=== PATIENT | male | born 1995 | race Hispanic/Latino ===

== ENCOUNTER 2021-02-03 18:00 | Emergency (ER) | payer OTHER ==
[~2021-02-03] VITALS: Ht 180.3 cm; Wt 104.8 kg
[2021-02-03] MEDS ORDERED: ONDA4TAB6 PO (21:32)
[2021-02-03 21:48] VITALS: BP 131/72
== END 2021-02-03 21:49 | disposition home or self-care (01) ==
LOC: M ED 18:00
DX: K52.9 Noninfective gastroenteritis and colitis, unspecified (principal); R19.7 Diarrhea, unspecified; R42 Dizziness and giddiness; R61 Generalized hyperhidrosis; R68.83 Chills (without fever); R63.8 Other symptoms and signs concerning food and fluid intake; R06.02 Shortness of breath; R51.9 Headache, unspecified

== ENCOUNTER 2021-08-23 10:08 | Emergency (ER) | payer OTHER ==
[~2021-08-23] VITALS: Ht 180.3 cm; Wt 103.2 kg
[~2021-08-23 10:08] MED LIST: ONDA4TAB6 PO
--- OUTSIDE RECORDS SUMMARY | 2021-08-23 10:13 | CCD ---
Author Author [facility] Organization [facility] Address Unknown Phone Unavailable Support Name Relationship Address Phone [facility] Next Of Kin [address] [place] [address] Unavailable JOE PEREZ Next Of Kin [address] [facility] [place] [place] [address] JOE PEREZ ECON [address] [facility] [place] [address] Unavailable Re-disclosure Warning The records that you are about to access may contain information from federally-assisted alcohol or drug abuse programs. If such information is present, then the following federally mandated warning applies: This information has been disclosed to you from records protected by federal confidentiality rules (42 CFR part 2). The federal rules prohibit you from making any further disclosure of this information unless further disclosure is expressly permitted by the written consent of the person to whom it pertains or as otherwise permitted by 42 CFR part 2. A general authorization for the release of medical or other information is NOT sufficient for this purpose. The Federal rules restrict any use of the information to criminally investigate or prosecute any alcohol or drug abuse patient.The records that you are about to access may contain highly sensitive health information, the redisclosure of which is protected by Article 27-F of the [facility] Public Health law. If you continue you may have access to information: Regarding HIV / AIDS; Provided by facilities licensed or operated by the [facility] Office of Mental Health; or Provided by the [facility] Office for People With Developmental Disabilities. If such information is present, then the following [facility] mandated warning applies: This information has been disclosed to you from confidential records which are protected by state law. State law prohibits you from making any further disclosure of this information without the specific written consent of the person to whom it pertains, or as otherwise permitted by law. Any unauthorized further disclosure in violation of state law may result in a fine or fdc sentence or both. A general authorization for the release of medical or other information is NOT sufficient authorization for further disc losure. Medications No Information Insurance Providers Payer name Policy type / Coverage type Policy ID Covered libertarian ID Covered libertarian's relationship to vanegas Policy Vanegas Plan Information [email or web address] ACTIVE DUTY [id number] Problems, Conditions, and Diagnoses No Information Surgeries/Procedures No Information Results ID Date Data Source [id number] 03/28/2021 12:00:00 AM EDT [facility] Name Value Range Interpretation Code Description Data Sharda rce(s) Supporting Document(s) pcr negative [facility] This lab was ordered by [facility] and reported by [facility]. ID Date Data Source [id number] 02/03/2021 07:26:00 PM EDT [facility] Name Value Range Interpretation Code Description Data Sharda rce(s) Supporting Document(s) SARS-CoV-2 (COVID 19) NEGATIVE - SARS-CoV-2 (COVID19) [facility] This lab was ordered by [facility] a nd reported by [facility]. ID Date Data Source [id number] 08/17/2020 12:00:00 AM EST [facility] Name Value Range Interpretation Code Description Data Sharda rce(s) Supporting Document(s) SARS-CoV2 Rapid Antigen [facility] This lab was ordered by [facility] and reported by [facility]. Procedure Social History No Information
[2021-08-23] MEDS ORDERED: HYDR-3363 PO (10:15)
--- OUTSIDE RECORDS SUMMARY | 2021-08-23 11:33 | CCD ---
Author Author [facility] Organization [facility] Address Unknown Phone Unavailable Support Name Relationship Address Phone [facility] Next Of Kin [address] [place] [address] Unavailable JOE PEREZ Next Of Kin [address] [facility] [place] [address] JOE PEREZ ECON [address] [facility] [place] [address] Unavailable Re-disclosure Warning The records that you [...] is protected by Article 27-F of the [facility] Public Health law. If you continue you may have access to information: Regarding HIV / AIDS; Provided by facilities licensed or operated by the [facility] Office of Mental Health; or Provided by the [facility] Office for People With Developmental Disabilities. If such information is present, then the following [facility] mandated warning applies: This information has been [...] law may result in a fine or detention sentence or both. A general authorization for the release of medical or other information is NOT sufficient authorization for further disc losure. Medications No Information Insurance Providers Payer name Policy type / Coverage type Policy ID Covered democrat ID Covered democrat's relationship to vanegas Policy Vanegas Plan Information [facility] ACTIVE DUTY [id number] Problems, Conditions, and Diagnoses No Information Surgeries/Procedures No Information Results ID Date Data Source [id number] 03/28/2021 12:00:00 AM EDT [facility] Name Value Range Interpretation Code Description Data Sharda rce(s) Supporting Document(s) pcr negative [facility] This lab was ordered by [facility] and reported by [facility]. ID Date Data Source [id number] 02/03/2021 07:26:00 PM EDT [facility] Name Value Range Interpretation Code Description Data Sharda rce(s) Supporting Document(s) SARS-CoV-2 (COVID 19) NEGATIVE - SARS-CoV-2 (COVID19) [facility] This lab was ordered by [facility] a nd reported by [facility]. ID Date Data Source [id number] 08/17/2020 12:00:00 AM EST [facility] Name Value Range Interpretation Code Description Data Sharda rce(s) Supporting Document(s) SARS-CoV2 Rapid Antigen [facility] This lab was ordered by [facility] and reported by [facility]. Procedure Social History No Information
[2021-08-23 13:16] LABS: BASO % 0.5 % (0.0-1.0); EOS % 0.6 % (0.0-3.0); HEMATOCRIT 44.1 % (42.0-52.0); HEMOGLOBIN 14.7 g/dl (13.5-17.5); LYMPH # 1.5 10^3/uL (1.5-5.0); LYMPH % 23.6 % (24.0-44.0); MEAN CORPUSCULAR HEMOGLOBIN 26.1 pg (27.0-33.0); MEAN CORPUSCULAR HGB CONC 33.3 g/dl (32.0-36.5); MEAN CORPUSCULAR VOLUME 78.3 fl (80.0-96.0); MONO # 0.6 10^3/uL (0.0-0.8); MONO % 8.6 % (2.0-8.0); NEUTROPHILS # 4.3 10^3/uL (1.5-8.5); NEUTROPHILS % 66.4 % (36.0-66.0); PLATELET COUNT, AUTOMATED 284 10^3/uL (150-450); RED BLOOD COUNT 5.63 10^6/uL (4.30-6.10); WHITE BLOOD COUNT 6.5 10^3/uL (4.0-10.0)
[2021-08-23 13:43] LABS: CK-MB VALUE MASS < 1.0 NG/ML (<3.6); CPK CREATINE PHOSPHOKINASE 128 U/L (39-308); MB/CK RELATIVE INDEX 0.78 (< OR =4); TROPONIN I < 0.02 NG/ML (< 0.10)
[2021-08-23 13:50] LABS: BLOOD UREA NITROGEN 16 MG/DL (7-18); CALCIUM LEVEL 9.7 MG/DL (8.5-10.1); CARBON DIOXIDE LEVEL 28 MEQ/L (21-32); CHLORIDE LEVEL 108 MEQ/L (98-107); CREATININE FOR GFR 1.14 MG/DL (0.70-1.30); FREE T4 1.02 NG/DL (0.76-1.46); GLOMERULAR FILTRATION RATE > 60.0 (>60); GLUCOSE, FASTING 98 MG/DL (70-100); POTASSIUM SERUM 4.3 MEQ/L (3.5-5.1); SODIUM LEVEL 139 MEQ/L (136-145)
[2021-08-23] MEDS ORDERED: ISOVUE-370 76% 100ML VIAL As Ordered ONE (13:56)
--- NOTE | 2021-08-23 14:16 | REP ---
INDICATION: R/O PE COMPARISON: None. TECHNIQUE: Axial contrast enhanced images from the thoracic inlet to the upper abdomen using pulmonary embolus technique with multiplanar re-formations. 75 ml Isovue 370 intravenous contrast material administered without complication. This CT examination was performed using the following dose reduction techniques: Automated exposure control, adjustment of mA and/or kv according to the patient's size, and use of iterative reconstruction technique. FINDINGS: Satisfactory enhancement of the pulmonary vasculature is achieved and no filling defects are identified to suggest pulmonary embolus. Further evaluation of the mediastinum demonstrates normal thoracic aorta, heart and pericardium. The bilateral lung choudhary are well aerated and clear without consolidation pleural effusion or pneumothorax. Tracheobronchial tree is patent. No nodule or mass lesion is identified. No adenopathy noted. Surrounding musculoskeletal structures intact IMPRESSION: No evidence for pulmonary embolus. No acute mediastinal or pleural parenchymal process. <Electronically signed by Jenaro Finn > 08/23/21 [id number]
[2021-08-23 16:15] VITALS: BP 141/69
--- NOTE | 2021-08-23 20:35 | ECGEPIP ---
[facility] - ED Test Date: 2021-08-23 Pat Name: MELISSA FERNANDEZ Department: Room: - Gender: Male Wholesale Manager: ELIU : 1995 Requested By: Ludy Espinal Order Number: [id number] Reading MD: Ludy Espinal Measurements Intervals Adrian Rate: 81 P: 62 NE: 160 QRS: 30 QRSD: 88 T: 33 QT: 352 QTc: 408 Interpretive Statements Normal sinus rhythm No prior Electronically Signed on 08-23-2021 20:35:24 EST by Ludy Espinal
== END 2021-08-23 16:33 | disposition home or self-care (01) ==
LOC: M ED 10:08
DX: R07.9 Chest pain, unspecified (principal); F41.9 Anxiety disorder, unspecified; F17.200 Nicotine dependence, unspecified, uncomplicated
CPT/HCPCS: 71275; 80048; 82550; 82553; 84439; 84443; 84484; 85025; 93005; 93041; 94760; 99285; Q9967